=== PATIENT | female | born 1990 | race Caucasian/White ===

== ENCOUNTER 2021-03-27 22:09 | Outpatient (CLI) | payer OTHER, MEDICAID ==
[~2021-03-27] VITALS: Ht 170.2 cm; Wt 87.7 kg
[~2021-03-27 22:09] MED LIST: PREN-1 PO
[2021-03-29] MEDS ORDERED: IBUP-1222 PO (07:06)
[2021-03-29] MEDS ORDERED: OXYC1TAB14 PO (07:06)
[2021-03-29] MEDS ORDERED: DOCU-131 PO (07:06)
== END 2021-03-28 00:50 | disposition home or self-care (01) ==
LOC: LDOP 22:09
PROVIDERS: ATTEND Obstetrics & Gynecology
DX: O26.893 Other specified pregnancy related conditions, third trimester (principal); R10.9 Unspecified abdominal pain; Z3A.38 38 weeks gestation of pregnancy
CPT/HCPCS: 59025

== ENCOUNTER 2021-03-28 09:35 | Inpatient (IN) | payer OTHER, MEDICAID ==
[~2021-03-28] VITALS: Ht 170.2 cm; Wt 86.3 kg
[2021-03-28] MEDS ORDERED: NEWBORN KIT ONE (09:49)
[2021-03-28] MEDS ORDERED: OXYTOCIN 30U/ 0.9% NaCL 500ML 500 ML ONE (09:49)
[2021-03-28] MEDS ORDERED: LACTATED RINGERS 1,000 ML IV SCH ×2 (10:00→11:00)
[2021-03-28] MEDS ORDERED: ONDANSETRON 2MG/ML, 2ML IVPush PRN ×2 (10:00→11:00)
[2021-03-28] MEDS ORDERED: FENTANYL PF 100 MCG/2ML IVPush PRN (10:00)
[2021-03-28] MEDS ORDERED: CALCIUM CARBONATE 500 MG TAB.CHEW PO PRN (10:00)
[2021-03-28] MEDS ORDERED: TERBUTALINE 1 MG/ML, 1ML IVPush PRN (10:00)
[2021-03-28] MEDS ORDERED: OXYTOCIN 30U/ 0.9% NaCL 500ML 500 ML IV ONE (10:00)
[2021-03-28] MEDS ORDERED: TERBUTALINE 1 MG/ML, 1ML SQ PRN (10:00)
[2021-03-28] MEDS ORDERED: D5%-LACTATED RINGERS 1,000 ML IV SCH (10:00)
[2021-03-28] MEDS ORDERED: FENTANYL PF 100 MCG/2ML IV PRN (10:00)
[2021-03-28 10:15] LABS: BASOPHILS % (AUTO) 1 % (0-1); EOSINOPHILS % (AUTO) 1 % (1-7); LYMPHOCYTES % (AUTO) 20 % (22-44); MEAN CORPUSCULAR HEMOGLOBIN 22.7 pg (27.0-34.8); MEAN CORPUSCULAR HGB CONC 32.5 g/dL (32.4-35.8); MEAN PLATELET VOLUME 12.2 fL (7.4-10.4); MONOCYTES % (AUTO) 8 % (2-9); NEUTROPHILS % (AUTO) 71 % (42-75); RED BLOOD COUNT 4.75 x10^6/uL (3.82-5.3); RED CELL DISTRIBUTION WIDTH 15.8 % (9.6-15.2)
[2021-03-28] MEDS ORDERED: BUPIVACAINE 0.25% ONE (10:26)
[2021-03-28] MEDS ORDERED: FENTANYL/BUPIV./NS/PF 250 ML EPIDCONT ONE (10:26)
[2021-03-28 10:38] LABS: MD MORPH REVIEW ONLY
[2021-03-28 10:40] LABS: PLATELET COUNT 99 x10^3/uL (130-400)
[2021-03-28 10:41] LABS: ANISOCYTOSIS 1+
[2021-03-28 10:42] LABS: <PLATELET ESTIMATE> DECREASED; GIANT PLATELETS 1+; LARGE PLATELETS 1+; POLYCHROMASIA 1+
[2021-03-28 10:43] LABS: MICROCYTOSIS 2+
[2021-03-28] MEDS ORDERED: EPHEDRINE 50 MG/ML, 1ML IVPush PRN (11:00)
[2021-03-28] MEDS ORDERED: FENTANYL/BUPIV./NS/PF 250 ML EPIDCONT SCH (11:00)
[2021-03-28] MEDS ORDERED: LACTATED RINGERS 1,000 ML IVBOLUS PRN (11:00)
[2021-03-28] MEDS ORDERED: NALOXONE 0.4 MG/ML, 1ML IVPush PRN (11:00)
[2021-03-28] MEDS ORDERED: DIPHENHYDRAMINE 50 MG/ML, 1ML IVPush PRN (11:00)
[2021-03-28] MEDS ORDERED: OXYTOCIN 30U/ 0.9% NaCL 500ML 500 ML IV PRN (14:30)
[2021-03-28] MEDS ORDERED: SIMETHICONE 80 MG CHEW TAB PO PRN (19:30)
[2021-03-28] MEDS ORDERED: METHYLERGONOVINE 0.2 MG/ML IM PRN (19:30)
[2021-03-28] MEDS ORDERED: ONDANSETRON 2MG/ML, 2ML IV PRN (19:30)
[2021-03-28] MEDS ORDERED: BISACODYL 10 MG SUPP PR PRN (19:30)
[2021-03-28] MEDS ORDERED: METOCLOPRAMIDE 5 MG/ML, 2ML IV PRN (19:30)
[2021-03-28] MEDS ORDERED: OXYcodone/APAP 5/325MG TABLET PO PRN (19:30)
[2021-03-28] MEDS ORDERED: ACETAMINOPHEN 325 MG TABLET PO PRN (19:30)
[2021-03-28] MEDS ORDERED: MISOPROSTOL 200 MCG TABLET PR PRN (19:30)
[2021-03-28] MEDS: OXYTOCIN 30U/ 0.9% NaCL 500ML 500 ML IV SCH (19:30)
[2021-03-28 19:55] VITALS: BP 121/79
[2021-03-28] MEDS: DOCUSATE 100 MG CAPSULE PO PRN (22:29)
[2021-03-28] MEDS: IBUPROFEN 600 MG TABLET PO PRN (22:29)
[2021-03-28] MEDS: OXYcodone/APAP 5/325MG TABLET PO PRN (23:36)
[2021-03-28 23:50] VITALS: BP 122/77
[2021-03-29 02:01] LABS: BASOPHILS % (AUTO) 0 % (0-1); EOSINOPHILS % (AUTO) 1 % (1-7); LYMPHOCYTES % (AUTO) 14 % (22-44); MEAN CORPUSCULAR HEMOGLOBIN 22.7 pg (27.0-34.8); MEAN CORPUSCULAR HGB CONC 32.4 g/dL (32.4-35.8); MEAN PLATELET VOLUME 9.5 fL (7.4-10.4); MONOCYTES % (AUTO) 9 % (2-9); NEUTROPHILS % (AUTO) 76 % (42-75); RED BLOOD COUNT 4.71 x10^6/uL (3.82-5.3); RED CELL DISTRIBUTION WIDTH 15.8 % (9.6-15.2)
[2021-03-29 02:39] LABS: PLATELET COUNT 98 x10^3/uL (130-400)
[2021-03-29 02:40] LABS: MD SCAN
[2021-03-29 04:15] VITALS: BP 109/64
[2021-03-29] MEDS: IBUPROFEN 600 MG TABLET PO PRN (04:29)
[2021-03-29] MEDS: OXYcodone/APAP 5/325MG TABLET PO PRN ×2 (04:29→08:37)
[2021-03-29] MEDS: OXYTOCIN 30U/ 0.9% NaCL 500ML 500 ML IV SCH ×2 (05:30→15:30)
[2021-03-29] MEDS ORDERED: IBUP-1222 PO (07:06)
[2021-03-29] MEDS ORDERED: OXYC1TAB14 PO (07:06)
[2021-03-29] MEDS ORDERED: DOCU-131 PO (07:06)
[2021-03-29 08:05] VITALS: BP 107/61
[2021-03-29] MEDS: DOCUSATE 100 MG CAPSULE PO PRN (08:37)
[2021-03-29] MEDS ORDERED: PRENATAL VIT/IRON/FA 1 EACH TABLET PO SCH (09:00)
[2021-03-29 12:00] VITALS: BP 110/68
[2021-03-29 16:00] VITALS: BP 112/68
== END 2021-03-29 17:59 | disposition home or self-care (01) | DRG 805 ==
LOC: LDOP 09:35 → LDIP 09:42 → 2NW 19:40
PROVIDERS: ADMIT Obstetrics & Gynecology; ATTEND Obstetrics & Gynecology
PROC: 10E0XZZ Delivery of Products of Conception, External Approach (ICD-10-PCS; principal; 2021-03-28)
PROC: 10907ZC Drainage of Amniotic Fluid, Therapeutic from Products of Conception, Via Natural or Artificial Opening (ICD-10-PCS; 2021-03-28)
PROC: 0HQ9XZZ Repair Perineum Skin, External Approach (ICD-10-PCS; 2021-03-28)
PROC: 3E0R3BZ Introduction of Anesthetic Agent into Spinal Canal, Percutaneous Approach (ICD-10-PCS; 2021-03-28)
PROC: 00HU33Z Insertion of Infusion Device into Spinal Canal, Percutaneous Approach (ICD-10-PCS; 2021-03-28)
DX: O98.52 Other viral diseases complicating childbirth (principal); U07.1 COVID-19; Z37.0 Single live birth; Z3A.38 38 weeks gestation of pregnancy; O70.0 First degree perineal laceration during delivery
CPT/HCPCS: 36415; J7121; 85025; 86592; 86850; 86900; 87635; G0378; J3010; J2590; J7120